=== PATIENT | female | born 1980 | race Caucasian/White ===

== ENCOUNTER → 2018-12-20 | Outpatient (CLI) | payer OTHER | LOC: OD 11:15 | PROVIDERS: ATTEND Nurse Practitioner Family | DX: R30.0 Dysuria (principal) | CPT/HCPCS: 87086 ==

== ENCOUNTER → 2019-03-16 | Outpatient (CLI) | payer OTHER ==
[2019-03-16 15:23] LABS: FOLATE > 20.00 ng/mL (>2.76)
[2019-03-19 07:06] LABS: ANTINUCLEAR ANTIBODIES Negative (Negative)
== END ==
LOC: OD 12:28
PROVIDERS: ATTEND Specialist
DX: G35 Multiple sclerosis (principal); G62.9 Polyneuropathy, unspecified
CPT/HCPCS: 36415; 82607; 82746; 86038